=== PATIENT | female | born 1990 | race Asian ===

== ENCOUNTER 2019-01-02 14:58 | Inpatient (IN) | payer OTHER ==
[~2019-01-02] VITALS: Ht 160 cm; Wt 71.0 kg
[2019-01-02 15:13] VITALS: Ht 160 cm; Wt 71.0 kg
[2019-01-02 15:19] VITALS: BP 117/77; PULSE 76; RESP 20
[2019-01-02] MEDS ORDERED: OXYTOCIN 30 UNITS/LR 500 ML IV SCH ×2 (15:30→23:48)
[2019-01-02] MEDS ORDERED: CARBOPROST 250 MCG INJ IM PRN (15:30)
[2019-01-02] MEDS ORDERED: METHYLERGONOVINE 0.2 MG INJ IM PRN (15:30)
[2019-01-02] MEDS ORDERED: MISOPROSTOL 200 MCG TAB PR PRN (15:30)
[2019-01-02] MEDS ORDERED: OXYTOCIN 30 UNITS/LR 500 ML IV PRN (15:30)
[2019-01-02] MEDS ORDERED: CEFAZOLIN 2 GM/50 ML (PMX) 50 ML IVPB SCH (15:30)
[2019-01-02] MEDS: LACTATED RINGER'S 1,000 ML IV SCH ×2 (15:40→18:27)
[2019-01-02] MEDS ORDERED: ONDANSETRON 4 MG INJ IV STA (15:42)
[2019-01-02] MEDS ORDERED: FAMOTIDINE 20 MG INJ IV ONE (16:00)
[2019-01-02] MEDS ORDERED: METOCLOPRAMIDE 10 MG INJ IV ONE (16:00)
--- NOTE | 2019-01-02 17:27 | HP ---
Date/Time of Note Date/Time of Note DATE: 01/02/19 TIME: 17:24 OB - History Hx of Present Free Text/Dictation 28 years old 2 para 1-0-0-1 with single intrauterine at 39 weeks and 1 day with ZELALEM of 01/08/2019 with breech presentation and previous delivery as scheduled for repeat delivery. She states good movement. She denies nausea, vomiting, shortness of breath, chest pain, headache, visual changes, vaginal bleeding or LOF. Chief Complaint: Scheduled for repeat delivery Estimated Due Date: January 08, 2019 : 2 Para: 1 Spontaneous : 0 Therapeutic : 0 Care: Good Care Obstetrical Complications: None Medical Complications: None Past Family/Social History * Past Medical, Surgical, Family and Obstetric Histories reviewed from chart. Blood Type: B+ Rubella: immune RPR/VDRL: Negative GBS Status: Negative HBsAG: Negative OB Admission Exam Vital Signs Vital Signs Vital Signs Date Temp Pulse Resp B/P (MAP) Pulse Ox O2 O2 Flow FiO2 Time Delivery Rate 01/02/19 98.3 76 20 117/77 Room Air 15:19 (90) Physical Exam HEENT: WNL Heart: Rhythm Normal Lungs: Clear Abdomen: WNL Extremities: Normal Membranes: Intact Heart Rate: 130's Accelerations: Accelerations Present Decelerations: No Decelerations Varibility: Moderate Last 72 hours Lab Results CBC & BMP 01/02/19 15:20 OB Assessment/Plan Other plan: 28 years old 2 para 1-0-0-1 with single intrauterine at 39 weeks and 1 day with breech presentation and previous delivery admitted for repeat delivery. -FHR: No sign of metabolic acidosis- Category I -Continuous EFM, toco -CBC, blood type and screen -Please see the orders -B+/Rubella: Immune -GBS: Negative The risk of delivery including but not limited to bleeding, infection, injury to other organs (bowel, bladder, ureter, vessels, nerves), injury to f etus, blood transfusion, blood transfusion related infection, risk of anesthesia, adhesion, needs for future , removal of uterus or any other indicated surgery was discussed with the patient and her family. She expressed understanding. All of her questions were answered. She signed the informed consent. PHYSICIAN'S VERIFICATION OF INFORMED CONSENT The patient was counseled regarding the procedure, its indications, risks, potential complications and alternatives and any questions were answered. Consent was obtained. PLANNED PROCEDURE/TREATMENT: delivery with possible using vacuum/forceps and any other indicated surgery PHYSICIAN'S VERIFICATION OF INFORMED CONSENT FOR BLOOD TRANSFUSION: There is a reasonable possibility that blood transfusion will be necessary as a result of the patient's procedure. I have discussed the following with the patient/patient's legal operations representative: An explanation of the benefits and risks of the transfusion of blood or blood products and the possible alternatives. All questions have been answered to the patient's satisfaction. INFORMED CONSENT:The patient has been informed of: The nature of the proposed care, treatment, services, medications, interventions or procedures. Potential benefits, risks or side effects, including potential problems related to recuperation. The likelihood of achieving care treatment and service goals. Reasonable alternatives to the proposed care, treatment and service. The relevant risks, benefits and side effects related to alternatives, including the possible results of not receiving care, treatment and services. When indicated, any limitations on the confidentiality of information learned from or about the patient. If appropriate, the risks, benefits and alternatives of the drugs to be used for sedation/analgesia including moderate sedation. If appropriate, patient has been provided information on the risks, benefits and alternatives to the transfusion of blood and/or blood products. If appropriate, patient has been provided information regarding the [place] Blood Act. SKYLA CHAMPION January 02, 2019 17:27
--- NOTE | 2019-01-02 18:16 | PREAC ---
Date/Time of Note Date/Time of Note DATE: 01/02/19 TIME: 18:14 Anesthesia Eval and Record Evaluation Time Pre-Procedure Interview DATE: 01/02/19 TIME: 18:14 Age 28 Sex female NPO: 8 hrs Preoperative diagnosis prev Csection, term Planned procedure Repeat Csection Past Medical History Past Medical History: None Surgery & Anesthesia Issues No known issue Meds Anticoagulation: No Beta Yomaira within 24 hr: No Reason Beta Yomaira not given: Pt. not on B-Yomaira Current Medications Lactated Ringer's 1,000 ml @ 125 mls/hr Q8H IV Last administered on 01/02/19at 15:40; Admin Dose 125 MLS/HR; Start 01/02/19 at 15:20 Cefazolin Sodium/ Dextrose 50 ml @ 100 mls/hr ONCE IVPB ; Start 01/02/19 at 15:30 Oxytocin/Lactated Ringer's 500 ml @ 125 mls/hr POST IV ; Start 01/02/19 at 15:30 Oxytocin/Lactated Ringer's 500 ml @ 0 mls/hr ONCE PRN IV .VAGINAL BLEEDING; Start 01/02/19 at 15:30 Methylergonovine Maleate (Methergine) 0.2 mg ONCE PRN IM .VAGINAL BLEEDING; Start 01/02/19 at 15:30 Carboprost Tromethamine (Hemabate) 250 mcg ONCE PRN IM .VAGINAL BLEEDING; Start 01/02/19 at 15:30 Misoprostol (Cytotec) 1,000 mcg ONCE PRN [place] .VAGINAL BLEEDING; Start 01/02/19 at 15:30 Meds reviewed: Yes Allergies Coded Allergies: ibuprofen (Verified Allergy, Intermediate, rash, 01/02/19) Allergies Reviewed: Yes Labs/Studies Labs Reviewed: Reviewed by anesthesiologist Result Diagram: 01/02/19 1520 Laboratory Tests 01/02/19 15:20 Blood Bank Test 01/02/19 15:20 Antibody Screen NEGATIVE Blood Type B POSITIVE Rh Immune Globulin Candidate NO test: Positive Pre-procedure Exam Last vitals Vital Signs Date Temp Pulse Resp B/P (MAP) Pulse Ox O2 O2 Flow FiO2 Time Delivery Rate 01/02/19 98.3 76 20 117/77 Room Air 15:19 (90) Airway: Adequate mouth opening, Adequate thyromental dist Mallampati: Mallampati III Teeth: Normal Lung: Normal Heart: Normal ASA Physical Status ASA physical status: 2 Emergency: None Planned Anesthetic Neuraxial: Spinal Planned Pain Management Sub-arachniod narcotics, Parenteral pain med, Other neuraxial med Pre-operative Attestations Prior to commencing anesthesia and surgery, the patient was re-evaluated, there was verification of: *The patient's identity *The results of appropriate recent lab work and preoperative vital signs *The above evaluation not changing prior to induction *Anesthetic plan, risk benefits, alternative and complications discussed with patient/family; questions answered; patient/family understands, accepts and wishes to proceed. AD CAGLE MD January 02, 2019 18:16
[2019-01-02] MEDS ORDERED: OXYTOCIN 10 UNIT INJ ONE (18:21)
[2019-01-02] MEDS ORDERED: morphine SULFATE/PF (10 MG/10 ML) INJ ONE (18:21)
[2019-01-02] MEDS ORDERED: OXYTOCIN 30 UNITS/LR 500 ML IV ONE (18:21)
[2019-01-02] MEDS ORDERED: ZOLPIDEM 5 MG TAB PO PRN (18:30)
[2019-01-02] MEDS ORDERED: MIDAZOLAM 1 MG/ML 2 ML INJ IV PRN (18:30)
[2019-01-02] MEDS ORDERED: FENTAnyl 50 MCG/ML VIAL IV PRN ×2 (18:30)
[2019-01-02] MEDS ORDERED: DIPHENHYDRAMINE 50 MG INJ IV PRN ×2 (18:30)
[2019-01-02] MEDS ORDERED: ONDANSETRON 4 MG INJ IV PRN ×2 (18:30)
[2019-01-02] MEDS ORDERED: NALOXONE (0.4 MG/ML) INJ IV PRN (18:30)
[2019-01-02] MEDS ORDERED: HYDROmorphONE 1 MG/5 ML IV SYRINGE IV PRN ×3 (18:30)
[2019-01-02] MEDS ORDERED: HYDROmorphONE 0.5 MG/0.5 ML SYG IV PRN (18:30)
--- NOTE | 2019-01-02 21:26 | OPR ---
Operative Report Planned Procedure Procedure date January 02, 2019 Procedure(s) Repeat low transverse delivery Performed by see signature line Camera Repairer: EDNA DE LA VEGA MD Anesthesiologist: AD CAGLE MD Pre-procedure diagnosis 28 years old 2 para 1-0-0-1 with single intrauterine at 39 weeks and 1 day with previous delivery desires repeat delivery [id number] Anesthesia Type: Uqfic5r spinal Post-Procedure Post-procedure diagnosis 28 years old 2 para 1-0-0-1 with single intrauterine at 39 weeks and 1 day with previous delivery desires repeat delivery Findings 1. Normal uterus, fallopian tubes and ovaries 2. Viable male in cephalic presentation. 8 at one minute and 9 in 5 minutes. Weight: 8 pounds and 8 ounces. Time of delivery: 20:28 3. Placenta with three vessel cord 4. Amniotic fluid - Clear Estimated Blood Loss: 500 - 600 mls Specimen(s) none Grafts/Implant(s) none Complication(s) none Pt Condition post procedure: stable Disposition: PACU Procedure Description INDICATION AND HISTORY: A 28 years old 2 para 1-0-0-1 with single intrauterine at 39 weeks and 1 day with previous delivery desires repeat delivery. The risk of delivery including but not limited to bleeding, infection, injury to other organs (bowel, bladder, ureter, vessels, nerves), injury to fetus, blood transfusion, blood transfusion related infection, risk of anesthesia, adhesion, needs for future , removal of uterus or any other indicated surgery was discussed with the patient and her family. She expressed understanding. All of her questions were answered. She signed the informed consent. DESCRIPTION OF OPERATION: The patient was taken to the operating room, where she was identified and the procedure was verified. The patient received two gram of Ancef 30 minutes prior to surgery. Spinal anesthesia was placed by anesthesiologist. The patient placed in the dorsal supine position with a left tilt. The heart rate was 130 bpm. The patient was then prepped and draped in the normal sterile fashion. A Pfannenstiel skin incision was made and carried down to the fascia with knife. The fascia was incised in the midline and the fascial incision was carried laterally with knife. The superior portion of the fascial incision was then grasped with Pau clamps and tented up and dissected off the underlying rectus muscle with sharp dissection. The lower portion of the fascial incision was then made in a similar fashion. The rectus muscle was and the peritoneum was entered. The peritoneal incision was then stretched and a bladder blade was inserted. Then, an incision was made in the lower uterine segment in a transverse fashion with a knife and extended bluntly. The was delivered atraumatically in cephalic presentation with the above findings. The umbilical cord was clamped and cut. The neonatology resuscitation team was present and the baby was handed to them. A cord blood sample was obtained for further evaluation. The placenta and membrane, which appeared normal were Removed. The uterus was exteriorized and cleared of all clot and debris. The uterus was then closed in a two layer fashion with 0-Monocryl. At the time of closure, hemostasis was noted. The gutters were irrigated. The peritoneum was reapproximated with 3-0 Vicryl. The muscle was reapproximated with 3-0 Vicryl. The fascia was approximated with 0-Vicryl in a running fashion. The subcutaneous tissue was re approximated with 3-0 vicryl. The skin was closed with 4-0 Monocryl. All instruments, sponges and needle counts were correct x3. The patient tolerated the procedure well. She transferred to the recovery room in stable condition. SKYLA CHAMPION January 02, 2019 21:26
[2019-01-02] MEDS: DEXTROSE 5%-LR 1,000 ML IV SCH (23:48)
[2019-01-02 23:55] VITALS: BP 117/68; PULSE 64; RESP 18
[2019-01-03] MEDS ORDERED: MISOPROSTOL 200 MCG TAB PR PRN
[2019-01-03] MEDS ORDERED: MAGNESIUM HYDROXIDE 30ML CUP PO PRN
[2019-01-03] MEDS ORDERED: METHYLERGONOVINE 0.2 MG TAB PO PRN
[2019-01-03] MEDS ORDERED: OXYTOCIN 30 UNITS/LR 500 ML IV PRN
[2019-01-03] MEDS ORDERED: CARBOPROST 250 MCG INJ IM PRN
[2019-01-03] MEDS ORDERED: METHYLERGONOVINE 0.2 MG INJ IM PRN
[2019-01-03 04:00] VITALS: BP 110/77; PULSE 80; RESP 19
[2019-01-03] MEDS: HYDROmorphONE 0.5 MG/0.5 ML SYG IV PRN ×2 (05:45→15:15)
[2019-01-03 08:10] VITALS: BP 116/68; PULSE 84; RESP 16
[2019-01-03] MEDS: CELECOXIB 200 MG CAP PO SCH ×2 (09:00→20:55)
[2019-01-03] MEDS: SENNA/DOCUSATE NA (8.6MG/50MG) TAB PO SCH ×2 (09:35→20:00)
[2019-01-03] MEDS: DEXTROSE 5%-LR 1,000 ML IV SCH (10:51)
[2019-01-03] MEDS ORDERED: DIPHTH/TET/ACEL PERTUSS (ADULT) 0.5 ML VIAL IM* ONE (11:00)
[2019-01-03 11:50] VITALS: BP 115/74; PULSE 89; RESP 17
[2019-01-03] MEDS: LANOLIN HPA 1 PKT TOP PRN (12:47)
[2019-01-03 16:00] VITALS: BP 120/73; PULSE 77; RESP 16
[2019-01-03] MEDS ORDERED: HYDROCODONE/APAP (5/325) TAB PO PRN (18:30)
[2019-01-03 20:00] VITALS: BP 118/77; PULSE 95; RESP 19
[2019-01-03] MEDS: HYDROCODONE/APAP (5/325) TAB PO SCH (22:05)
[2019-01-04] MEDS: CELECOXIB 200 MG CAP PO SCH ×3 (00:14→21:11)
[2019-01-04] MEDS: GUAIFENESIN/DM 5ML CUP PO SCH ×4 (00:31→21:55)
--- NOTE | 2019-01-04 01:21 | PN ---
Date/Time of Note Date/Time of Note DATE: 01/04/19 TIME: 01:16 OB Subjective Subjective Subjective Late entry note. Patient seen at 1800 on 01/03/2019 POD#1 Patient is doing well. She denies nausea, vomiting, shortness of breath, chest pain, headache. She has been ambulating without difficulty, tolerating regular diet. Pain is well controlled on current medications OB Objective Objective Objective VS - Last 72 Hours, by Label Date Temp Pulse Resp B/P (MAP) Pulse Ox O2 O2 Flow FiO2 Time Delivery Rate 01/03/19 98.8 95 19 118/77 Room Air 20:00 (91) 01/03/19 98.6 77 16 120/73 100 Room Air 16:00 (89) 01/03/19 98.6 89 17 115/74 100 Room Air 11:50 (88) 01/03/19 98.9 84 16 116/68 97 Room Air 08:10 (84) 01/03/19 98.5 80 19 110/77 98 Room Air 04:00 (88) 01/02/19 99.0 64 18 117/68 96 Room Air 23:55 (84) 01/02/19 98.3 76 20 117/77 Room Air 15:19 (90) General: AAO X 3, comfortable, NAD, appropriate mood and affect. Heart: RRR +S1, +S2, no murmurs. Lungs: Clear to auscultation (B/L), no rales, rhonchi or wheezing. ABD: +BS. Soft, non-tender. Uterus 2 cm below umbilicus Incision: Clear, dry, intact. No erythema, drainage or induration. Flank: No CVA tenderness (B/L) LE: Mild edema. No clubbing, cyanosis, thigh or calf tenderness (B/L). Homans 'sign is negative OB Assessment/Plan Other plan: 28 years old 2 para 2-0-0-2 s/p repeat delivery. POD#1 - AF, VSS - Baby is doing well, at bed side. She is bonding well - Contraception methods with R/B/A/FR discussed - Continue care SKYLA CHAMPION January 04, 2019 01:20
--- NOTE | 2019-01-04 02:02 | PN ---
Date/Time of Note Date/Time of Note DATE: 01/04/19 TIME: 01:59 OB Subjective Subjective Subjective POD#2 Patient is doing well. She denies nausea, vomiting, shortness of breath, chest pain, headache. She has been ambulating without difficulty, tolerating regular diet. Pain is well controlled on current medications OB Objective Objective Objective Vital Signs Date Temp Pulse Resp B/P (MAP) Pulse Ox O2 O2 Flow FiO2 Time Delivery Rate 01/03/19 98.8 95 19 118/77 Room Air 20:00 (91) 01/03/19 100 16:00 General: AAO X 3, comfortable, NAD, appropriate mood and affect. ABD: +BS. Soft, non-tender. Uterus 2 cm below umbilicus Incision: Clear, dry, intact. No erythema, drainage or induration. Flank: No CVA tenderness (B/L) LE: Mild edema. No clubbing, cyanosis, thigh or calf tenderness (B/L). Homans 'sign is negative Laboratory Tests Test 01/02/19 15:20 01/03/19 06:14 01/03/19 07:47 White Blood Count 9.3 10^3/ul 11.5 10^3/ul Red Blood Count 4.73 10^6/ul 4.44 10^6/ul Hemoglobin 12.5 g/dl 11.7 g/dl Hematocrit 37.9 % 36.0 % Mean Corpuscular Volume 80.1 fl 81.1 fl Mean Corpuscular 26.4 pg 26.4 pg Hemoglobin Mean Corpuscular 33.0 g/dl 32.5 g/dl Hemoglobin Concent Red Cell Distribution 13.2 % 13.4 % Width Platelet Count 178 10^3/UL 162 10^3/UL Mean Platelet Volume 12.5 fl 12.3 fl Immature Granulocytes % 1.000 % 0.500 % Neutrophils % 72.6 % 77.7 % Lymphocytes % 8.7 % 9.5 % Monocytes % 14.8 % 11.9 % Eosinophils % 2.6 % 0.1 % Basophils % 0.3 % 0.3 % Nucleated Red Blood Cells 0.0 /100WBC 0.0 /100WBC % Immature Granulocytes # 0.090 10^3/ul 0.060 10^3/ul Neutrophils # 6.8 10^3/ul 8.9 10^3/ul Lymphocytes # 0.8 10^3/ul 1.1 10^3/ul Monocytes # 1.4 10^3/ul 1.4 10^3/ul Eosinophils # 0.2 10^3/ul 0.0 10^3/ul Basophils # 0.0 10^3/ul 0.0 10^3/ul Nucleated Red Blood Cells 0.0 10^3/ul 0.0 10^3/ul # Prothrombin Time 11.7 Sec Prothrombin Time Ratio 0.9 INR International 0.85 Normalized Ratio Activated 31.9 Sec Partial Thromboplast Time Rapid Plasma Reagin NONREACTIVE Hepatitis B Surface NEGATIVE Antigen Lab Scanned Report REFERENCE LAB [id number] OB Assessment/Plan Other plan: 28 years old 2 para 2-0-0-2 s/p repeat delivery. POD#1 - AF, VSS - Baby is doing well, at bed side. She is bonding well - Contraception methods with R/B/A/FR discussed - Continue care - Discharge tomorrow - Prescription and instruction given. - Follow-up in 1 and 6 weeks SKYLA CHAMPION January 04, 2019 02:02
[2019-01-04 03:10] VITALS: BP 123/79; PULSE 57; RESP 18
[2019-01-04] MEDS: HYDROCODONE/APAP (5/325) TAB PO SCH ×3 (05:41→21:55)
[2019-01-04 07:40] VITALS: BP 116/83; PULSE 52; RESP 16
[2019-01-04] MEDS: SENNA/DOCUSATE NA (8.6MG/50MG) TAB PO SCH ×2 (09:18→21:11)
[2019-01-04] MEDS: LANOLIN HPA 1 PKT TOP PRN (09:19)
[2019-01-04 17:08] VITALS: BP 120/88; PULSE 66; RESP 18
[2019-01-04 20:25] VITALS: BP 123/79; PULSE 75; RESP 18
[2019-01-05 03:30] VITALS: BP 128/78; PULSE 58; RESP 17
[2019-01-05] MEDS: GUAIFENESIN/DM 5ML CUP PO SCH (05:36)
[2019-01-05] MEDS: HYDROCODONE/APAP (5/325) TAB PO SCH (05:36)
[2019-01-05 07:45] VITALS: BP 119/82; PULSE 51; RESP 16
[2019-01-05] MEDS ORDERED: MEASLES,MUMPS,RUBELLA VACCINE INJ SC* ONE (09:00)
[2019-01-05] MEDS ORDERED: DIPHTH/TET/ACEL PERTUSS (ADULT) 0.5 ML VIAL IM* ONE (09:00)
[2019-01-05] MEDS: CELECOXIB 200 MG CAP PO SCH (09:34)
[2019-01-05] MEDS: SENNA/DOCUSATE NA (8.6MG/50MG) TAB PO SCH (09:34)
--- NOTE | 2019-01-05 10:06 | PD.PPDC ---
CARDIOVASCULAR SURGICAL TECH Discharge Instruction Diagnosis [id number] Final Diagnosis: Cusnl5j S/P R C/S Condition Kusui5Cp Patient Condition: Xnnvu7i Stable Diet Zkztk9Ch Diet: Sfrlf7o Resume Regular Diet Activity/Restrictions [id number] Activity: Nwlbs4s May Shower Hmutu0Tf Restrictions: [id number] No Exercising No Lifting Minimize Stair-climbing No Sexual Activity Nothing in the Vagina No [place] No Tampons, douche Wound/Drain Care Instructions Iumsd6Fb Wound/Drain Care Instructions: Bfdsy9v Wash with soap and water Keep clean and dry Follow-up Follow-up with Physician: 2, Week/Weeks Return to clinic for [id number] [employer] ENGINEER Instructions: Gzvgv1o Fever greater than 101 Chills Worsening abdominal pain Excessive Vaginal Bleeding More than 2 pads per hour Unable to tolerate diet Epqjr7De OB Instructions: Awnmi6d Breast Tenderness Depression Blurried Vision Headache Pmzkl7Pv Surgical Instructions: Bzpef1b Incisional Drainage Incisional Redness ZENON WAGNER MD January 05, 2019 10:06
--- NOTE | 2019-01-05 10:09 | DS ---
Date/Time of Note Date/Time of Note DATE: 01/05/19 TIME: 10:08 Obstetrical Discharge Record Final Diagnosis Final Diagnosis: Term delivered Section Section: Repeat Complications Augmentation: No Induction: No Rupture of Membranes: No Condition on Discharge Physical Assessment Last Vitals: vss afebrile Voiding: Yes Bowel Movement: Yes Breast: Soft, non-tender Fundus: Firm Abdomen and Incision: soft wound dry Calf Tenderness: No Patient Condition: Stable ZENON WANGER MD January 05, 2019 10:09
--- NOTE | 2019-01-06 14:26 | DELSUM ---
Delivery Summary A-C Datetime Report Generated by CPN: 01/06/2019 14:26 DELIVERY PERSONNEL Vehicle Refinisher: Tersigni, Kristina MATERNAL INFORMATION Delivery Anesthesia: Spinal Medications in Delivery: SEE ANESTHESIA RECORD Delivery QBL (ml): 643 Placenta Cultured: No Maternal Complications: None LABOR SUMMARY EDC: 01/08/2019 00:00 No. Babies in Womb: 1 Attempted: No Labor Anesthesia: None LABOR INFORMATION Reason for Induction: Not Applicable Oxytocin: N/A Group B Beta Strep: Negative Antibiotics # of Doses: 1 Antibiotics Time of Last Dose: 01/02/2019 20:10 Steroids Given: None Reason Steroids Not Administered: Not Applicable MEMBRANES Membranes Rupture Method: Spontaneous Rupture of Membranes: 01/02/2019 20:27 Length of Rupture (hr): 0.02 Amniotic Fluid Color: Clear Amniotic Fluid Amount: Moderate Amniotic Fluid Odor: None STAGES OF LABOR Stage 3 hr: 0 Stage 3 min: 2 CSECTION DELIVERY Primary Indication: Repeat Elective Secondary Indication: N/A CSection Urgency: Elective CSection Incidence: Repeat Labor: No Labor Elective: Elective CSection Incision: Lower Uterine Transverse BABY A INFORMATION Delivery Date/Time: 01/02/2019 20:28 Method of Delivery: Born in Route : No : N/A Forceps: N/A Vacuum Extraction: N/A Shoulder Dystocia : N/A SHOULDER DYSTOCIA BABY A Delivery Date/Time: 01/02/2019 20:28 PRESENTATION/POSITION BABY A Presentation: Cephalic Cephalic Presentation: Vertex Vertex Position: Left Occipital Anterior Breech Presentation: N/A PLACENTA INFORMATION BABY A Placenta Delivery Time : 01/02/2019 20:30 Placenta Method of Delivery: Manual Removal Placenta Status: Delivered SCORES BABY A Heart Rate 1 min: >100 bpm Resp Effort 1 min: Good Cry Reflex Irritability 1 min: Cough/Sneeze/Pulls Away Muscle Tone 1 min: Active Motion Color 1 min: Body [place], Extremit Blue Resuscitation Effort 1 min: Tactile Stimulation SCORE 1 MIN: 9 Heart Rate 5 min: >100 bpm Resp Effort 5 min: Good Cry Reflex Irritability 5 min: Cough/Sneeze/Pulls Away Muscle Tone 5 min: Active Motion Color 5 min: Body [place], Extremit Blue Resuscitation Effort 5 min: Tactile Stimulation SCORE 5 MIN: 9 INFANT INFORMATION BABY A Gestational Age at Delivery: 39.1 Gestational Status: Full Term- 39- 40.6 Weeks Outcome : Liveborn Infant Condition : Stable Infant Sex: Male IDENTIFICATION/MEDS BABY A ID Band Number: [id number] ID Band Location: Right Leg; Left Arm Sensor Applied: Yes Sensor Number: [id number] Sensor Location : Cord Clamp Vitamin K Given : Not Given Erythromycin Given: Not Given WEIGHT/LENGTH BABY A Birthweight (gm): 3845 Weight (lb): 8 Weight (oz): 8 Length (in): 20.75 Infant Length (cm): 52.71 CORD INFORMATION BABY A No. Cord Vessels: 3 Nuchal Cord : N/A Cord Blood Taken: Yes Suction: Mouth; Nose ASSESSMENT BABY A Complications: None Physical Findings at Delivery: Within Normal Limits Infant Respirations: Appears Normal Director Of [employer] Giving/ALS Called : Yes Care By: RT / CHINA COONEY Transferred To: Remains with Mother
== END 2019-01-05 14:25 | disposition home or self-care (01) | DRG 788 ==
LOC: L-D 14:58 → PP1 23:46
PROVIDERS: ADMIT Obstetrics & Gynecology; ATTEND Obstetrics & Gynecology
PROC: 10D00Z1 Extraction of Products of Conception, Low, Open Approach (ICD-10-PCS; principal; 2019-01-02 17:00)
DX: O34.211 Maternal care for low transverse scar from previous cesarean delivery (principal); Z3A.39 39 weeks gestation of pregnancy; Z37.0 Single live birth
CPT/HCPCS: 85025; 85610; 85730; 86592; 86850; 86900; 86901; 87340; 90715; 99464; J0690; J1170; J2210; J2274; J2405; J2590; J2765; J7120; J7121